=== PATIENT | female | born 1995 | race Hispanic/Latino ===

== ENCOUNTER 2023-01-23 05:15 | Emergency (ER) | payer OTHER ==
[2023-01-23 05:17] VITALS: BP 100/67; TEMP 98.4; O2SAT 98
[2023-01-23 06:02] LABS: BASO % 0.4 % (0.0-1.0); EOS # 0.3 10^3/uL (0.0-0.5); EOS % 5.8 % (0.0-3.0); HEMATOCRIT 36.8 % (36.0-47.0); HEMOGLOBIN 12.9 g/dl (12.0-15.5); LYMPH # 2.8 10^3/uL (1.5-5.0); MEAN CORPUSCULAR HEMOGLOBIN 34.3 pg (27.0-33.0); MEAN CORPUSCULAR HGB CONC 35.1 g/dl (32.0-36.5); MEAN CORPUSCULAR VOLUME 97.9 fl (80.0-96.0); MONO # 0.4 10^3/uL (0.0-0.8); MONO % 8.3 % (2.0-8.0); NEUTROPHILS # 1.6 10^3/uL (1.5-8.5); NEUTROPHILS % 31.3 % (36.0-66.0); PLATELET COUNT, AUTOMATED 250 10^3/uL (150-450); RED BLOOD COUNT 3.76 10^6/uL (4.00-5.40); WHITE BLOOD COUNT 5.2 10^3/uL (4.0-10.0)
[2023-01-23 06:18] LABS: LIPASE 49 U/L (12-53)
[2023-01-23 06:20] LABS: ALBUMIN 3.8 G/DL (3.2-5.2); ALKALINE PHOSPHATASE 58 U/L (46-116); ALT/SGPT 12 U/L (7.0-40); AST/SGOT 9 U/L (<34); BILIRUBIN,DIRECT 0.1 MG/DL (<0.4); BILIRUBIN,TOTAL 0.4 MG/DL (0.3-1.2); BLOOD UREA NITROGEN 8 MG/DL (9-23); CALCIUM LEVEL 9.1 MG/DL (8.5-10.1); CARBON DIOXIDE LEVEL 24 MMOL/L (20-31); CHLORIDE LEVEL 108 MMOL/L (98-107); CREATININE FOR GFR 0.52 MG/DL (0.55-1.30); GLOMERULAR FILTRATION RATE > 60.0 (>60); GLUCOSE, FASTING 94 MG/DL (60-100); POTASSIUM SERUM 3.6 MMOL/L (3.5-5.1); SODIUM LEVEL 140 MMOL/L (136-145); TOTAL PROTEIN 6.3 G/DL (5.7-8.2)
[2023-01-23 06:24] LABS: HCG, SERUM QUALITATIVE NEGATIVE (NEGATIVE)
[2023-01-23 07:02] LABS: APPEARANCE, URINE HAZY (CLEAR); BACTERIA, URINE AUTO NEGATIVE (NEGATIVE); BILIRUBIN, URINE AUTO NEGATIVE (NEGATIVE); BLOOD, URINE BLOOD NEGATIVE (NEGATIVE); COLOR, URINE AMBER (YELLOW); GLUCOSE, URINE (UA) AUTO NEGATIVE (NEGATIVE); KETONE, URINE AUTO TRACE mg/dL (NEGATIVE); LEUKOCYTE ESTERASE, URINE AUTO TRACE (NEGATIVE); MUCUS, URINE LARGE (NEGATIVE); NITRITE, URINE AUTO NEGATIVE (NEGATIVE); PROTEIN, URINE AUTO NEGATIVE (NEGATIVE); RBC, URINE AUTO 0 /HPF (0-3); SPECIFIC GRAVITY URINE AUTO 1.025 (1.002-1.035); SQUAMOUS EPITHELIAL CELL UR AU 6 /HPF (0-6); UROBILINOGEN, URINE AUTO 0.2 mg/dL (0.0-2.0); WBC, URINE AUTO 3 /HPF (0-3)
[2023-01-23] MEDS ORDERED: NS 1,000 ML IV ONE (09:50)
[2023-01-23] MEDS ORDERED: ISOVUE-370 76% 100ML VIAL As Ordered ONE (10:06)
[2023-01-23] MEDS ORDERED: MIRA3350 PO (11:23)
[2023-01-23] MEDS ORDERED: COLA100C5 PO (11:23)
== END 2023-01-23 11:29 | disposition home or self-care (01) ==
LOC: M ED 05:15
DX: K59.00 Constipation, unspecified (principal); R10.12 Left upper quadrant pain; R10.32 Left lower quadrant pain; R91.8 Other nonspecific abnormal finding of lung field; Z88.0 Allergy status to penicillin; D25.9 Leiomyoma of uterus, unspecified
CPT/HCPCS: 36415; 74018; 74177; 76830; 76856; 80048; 80076; 81001; 83690; 84703; 85025; 93976; 99284; Q9967

== ENCOUNTER → 2023-02-03 | Outpatient (CLI) | payer OTHER ==
[~2023-02-03] MED LIST: COLA100C5 PO; MIRA3350 PO
== END ==
LOC: M WUC 14:32
PROVIDERS: ATTEND Registered Nurse
DX: K59.00 Constipation, unspecified (principal)

== ENCOUNTER 2023-03-08 08:13 | Emergency (ER) | payer OTHER ==
[~2023-03-08] VITALS: Ht 152.4 cm; Wt 47.0 kg
[2023-03-08] MEDS ORDERED: IBUPROFEN 400MG TAB PO ONE (11:05)
[2023-03-08] MEDS ORDERED: ACETAMINOPHEN 500 MG TAB PO ONE (11:05)
[2023-03-08 12:43] VITALS: BP 113/56; TEMP 100; O2SAT 100
== END 2023-03-08 12:46 | disposition home or self-care (01) ==
LOC: M ED 08:13
DX: J06.9 Acute upper respiratory infection, unspecified (principal); B34.1 Enterovirus infection, unspecified; B34.8 Other viral infections of unspecified site; Z88.0 Allergy status to penicillin

== ENCOUNTER → 2023-03-27 | Outpatient (CLI) | payer OTHER ==
[2023-03-27 12:38] LABS: BASO % 1.1 % (0.0-1.0); EOS # 0.4 10^3/uL (0.0-0.5); EOS % 9.7 % (0.0-3.0); HEMATOCRIT 37.7 % (36.0-47.0); HEMOGLOBIN 13.3 g/dl (12.0-15.5); LYMPH # 1.8 10^3/uL (1.5-5.0); LYMPH % 49.6 % (24.0-44.0); MEAN CORPUSCULAR HEMOGLOBIN 34.2 pg (27.0-33.0); MEAN CORPUSCULAR HGB CONC 35.3 g/dl (32.0-36.5); MEAN CORPUSCULAR VOLUME 96.9 fl (80.0-96.0); MONO # 0.3 10^3/uL (0.0-0.8); MONO % 9.2 % (2.0-8.0); NEUTROPHILS # 1.1 10^3/uL (1.5-8.5); NEUTROPHILS % 30.4 % (36.0-66.0); PLATELET COUNT, AUTOMATED 248 10^3/uL (150-450); RED BLOOD COUNT 3.89 10^6/uL (4.00-5.40); WHITE BLOOD COUNT 3.7 10^3/uL (4.0-10.0)
[2023-03-27 12:56] LABS: ERYTHROCYTE SEDIMENTATION RATE 2 mm/hr (0-20)
[2023-03-27 12:59] LABS: C REACTIVE PROTEIN QUANTITATIV < 0.40 MG/DL (<1.0)
[2023-03-27 13:01] LABS: ALBUMIN 4.1 G/DL (3.2-5.2); ALKALINE PHOSPHATASE 58 U/L (46-116); ALT/SGPT 16 U/L (7.0-40); AST/SGOT 16 U/L (<34); BILIRUBIN,TOTAL 0.5 MG/DL (0.3-1.2); BLOOD UREA NITROGEN 9 MG/DL (9-23); CALCIUM LEVEL 9.1 MG/DL (8.5-10.1); CARBON DIOXIDE LEVEL 30 MMOL/L (20-31); CHLORIDE LEVEL 106 MMOL/L (98-107); CREATININE FOR GFR 0.54 MG/DL (0.55-1.30); GLOMERULAR FILTRATION RATE > 60.0 (>60); GLUCOSE, FASTING 92 MG/DL (60-100); POTASSIUM SERUM 3.8 MMOL/L (3.5-5.1); SODIUM LEVEL 141 MMOL/L (136-145); TOTAL PROTEIN 6.6 G/DL (5.7-8.2)
[2023-03-27 13:26] LABS: RHEUMATOID FACTOR QUANT < 3.5 IU/ML (<14)
[2023-03-30 02:11] LABS: ANGIOTENSIN 1 CONVERTING ENZYM 36 U/L (14-82); ANTINUCLEAR ANTIBODIES DIRECT Negative (Negative); D001-IgE D pteronyssinus <0.10 kU/L (Class 0); E001-IgE Cat Epith/Dander < 0.10 kU/L (Class 0); E005-IgE Dog Dander < 0.10 kU/L (Class 0); G002-IgE Bermuda Grass < 0.10 kU/L (Class 0); M001-IgE Penicillium chrysogen < 0.10 kU/L (Class 0); M002 IgE Cladosporium herbaru < 0.10 kU/L (Class 0); M003 IgE Aspergillus fumigatu < 0.10 kU/L (Class 0); M006-IgE Alternaria alternata < 0.10 kU/L (Class 0); T001-IgE Maple/Box Elder < 0.10 kU/L (Class 0); T003-IgE Common Silver Birch < 0.10 kU/L (Class 0); T006-IgE Cedar, Mountain < 0.10 kU/L (Class 0); T007-IgE Oak, White < 0.10 kU/L (Class 0); T008-IgE Elm, American < 0.10 kU/L (Class 0); T015-IgE Ash, White < 0.10 kU/L (Class 0); T070-IgE White Mulberry < 0.10 kU/L (Class 0); W001-IgE Ragweed, Short < 0.10 kU/L (Class 0); W018-IgE Sheep Sorrel < 0.10 kU/L (Class 0)
== END ==
LOC: M WUC 09:17
PROVIDERS: ATTEND Physician Assistant
DX: J30.89 Other allergic rhinitis (principal); R91.1 Solitary pulmonary nodule; M13.849 Other specified arthritis, unspecified hand

== ENCOUNTER → 2023-07-31 | Outpatient (CLI) | payer OTHER ==
[2023-07-31 13:21] LABS: BASO % 0.6 % (0.0-1.0); EOS # 0.4 10^3/uL (0.0-0.5); EOS % 10.2 % (0.0-3.0); HEMATOCRIT 37.7 % (36.0-47.0); HEMOGLOBIN 13.1 g/dl (12.0-15.5); LYMPH # 1.7 10^3/uL (1.5-5.0); LYMPH % 48.4 % (24.0-44.0); MEAN CORPUSCULAR HGB CONC 34.7 g/dl (32.0-36.5); MEAN CORPUSCULAR VOLUME 100.8 fl (80.0-96.0); MONO # 0.3 10^3/uL (0.0-0.8); NEUTROPHILS # 1.1 10^3/uL (1.5-8.5); NEUTROPHILS % 31.5 % (36.0-66.0); PLATELET COUNT, AUTOMATED 225 10^3/uL (150-450); RED BLOOD COUNT 3.74 10^6/uL (4.00-5.40); WHITE BLOOD COUNT 3.4 10^3/uL (4.0-10.0)
== END ==
LOC: M WUC 10:34
PROVIDERS: ATTEND Physician Assistant
DX: D72.819 Decreased white blood cell count, unspecified (principal)

== ENCOUNTER → 2023-09-27 | Outpatient (CLI) | payer OTHER ==
[~2023-09-27] MED LIST changes: +CETI-24
== END ==
LOC: M RAD 15:59
PROVIDERS: ATTEND Physician Assistant
DX: J32.8 Other chronic sinusitis (principal); J34.2 Deviated nasal septum

== ENCOUNTER 2023-10-11 05:31 | Emergency (ER) | payer OTHER ==
[~2023-10-11] VITALS: Ht 152.4 cm; Wt 43.8 kg
[2023-10-11 06:27] LABS: RSV AMPLIFICATION NEGATIVE (NEGATIVE)
[2023-10-11 06:43] LABS: URINE PREG TEST NEGATIVE (NEGATIVE)
[2023-10-11 07:38] VITALS: BP 106/59; TEMP 97.1; O2SAT 100
[2023-10-11] MEDS ORDERED: DOXY-443 PO (07:39)
[2023-10-11] MEDS ORDERED: OXYM15SP2 (07:39)
== END 2023-10-11 07:44 | disposition home or self-care (01) ==
LOC: M ED 05:31
DX: J01.90 Acute sinusitis, unspecified (principal); Z79.899 Other long term (current) drug therapy; Z88.0 Allergy status to penicillin

== ENCOUNTER 2023-10-12 00:14 | Inpatient (IN) | payer OTHER ==
[~2023-10-12] VITALS: Ht 152.4 cm; Wt 43.2 kg
[~2023-10-12 00:14] MED LIST changes: +DOXY-443 PO; +OXYM15SP2
[2023-10-12 01:04] LABS: HEMATOCRIT 39.4 % (36.0-47.0); MEAN CORPUSCULAR HGB CONC 35.5 g/dl (32.0-36.5); MEAN CORPUSCULAR VOLUME 98.5 fl (80.0-96.0); PLATELET COUNT, AUTOMATED 223 10^3/uL (150-450); WHITE BLOOD COUNT 6.9 10^3/uL (4.0-10.0)
[2023-10-12 01:18] LABS: AMPHETAMINES LEVEL URINE NEGATIVE (NEGATIVE); BARBITURATES URINE NEGATIVE (NEGATIVE); BENZODIAZEPINES URINE NEGATIVE (NEGATIVE)
[2023-10-12 01:19] LABS: CANNABINOIDS URINE NEGATIVE (NEGATIVE); COCAINE METABOLITE URINE NEGATIVE (NEGATIVE); METHADONE URINE NEGATIVE (NEGATIVE); OPIATES URINE NEGATIVE (NEGATIVE); PHENCYCLIDINE URINE NEGATIVE (NEGATIVE)
[2023-10-12 01:21] LABS: ETHYL ALCOHOL (ETHANOL) < 0.003 % (0.000-0.010)
[2023-10-12 01:22] LABS: ALBUMIN 4.3 G/DL (3.2-5.2); ALKALINE PHOSPHATASE 59 U/L (46-116); ALT/SGPT 10 U/L (7.0-40); AST/SGOT 19 U/L (<34); BILIRUBIN,DIRECT 0.1 MG/DL (<0.4); BILIRUBIN,TOTAL 0.4 MG/DL (0.3-1.2); BLOOD UREA NITROGEN 11 MG/DL (9-23); CALCIUM LEVEL 9.6 MG/DL (8.5-10.1); CARBON DIOXIDE LEVEL 28 MMOL/L (20-31); CHLORIDE LEVEL 103 MMOL/L (98-107); CREATININE FOR GFR 0.48 MG/DL (0.55-1.30); GLOMERULAR FILTRATION RATE > 60.0 (>60); GLUCOSE, FASTING 105 MG/DL (60-100); POTASSIUM SERUM 3.4 MMOL/L (3.5-5.1); SALICYLATE LEVEL < 3.0 MG/DL (<30); SODIUM LEVEL 139 MMOL/L (136-145); TOTAL PROTEIN 6.9 G/DL (5.7-8.2)
[2023-10-12 01:24] LABS: THYROID STIMULATING HORMONE 2.907 uIU/ML (0.55-4.78)
[2023-10-12 01:33] LABS: HCG, SERUM QUALITATIVE NEGATIVE (NEGATIVE)
[2023-10-12] MEDS ORDERED: MAALOX 30 ML SUSP *UDC PO PRN (04:35)
[2023-10-12] MEDS ORDERED: diphenhydrAMINE 25MG CAP PO PRN (04:35)
[2023-10-12] MEDS ORDERED: IBUPROFEN 400MG TAB PO PRN (04:35)
[2023-10-12] MEDS ORDERED: traZODone 50 MG TAB PO PRN (04:35)
[2023-10-12] MEDS ORDERED: ACETAMINOPHEN TAB 650MG DOSE (2X325MG) PO PRN (04:35)
[2023-10-12] MEDS ORDERED: MOM 30ML SUSPENSION UDC PO PRN (04:35)
[2023-10-12 06:05] VITALS: BP 105/61; TEMP 97.5; O2SAT 100
== END 2023-10-12 11:02 | disposition home or self-care (01) | DRG 880 ==
LOC: M ED 00:14 → M ED INP 04:34 → M PSY 05:10
PROVIDERS: ADMIT Psychiatry & Neurology Psychiatry; ATTEND Student in an Organized Health Care Education/Training Program
DX: F43.0 Acute stress reaction (principal); R45.851 Suicidal ideations; J45.909 Unspecified asthma, uncomplicated; Z79.899 Other long term (current) drug therapy

== ENCOUNTER → 2023-12-08 | Outpatient (CLI) | payer OTHER ==
[~2023-12-08] MED LIST changes: +DOXY-323 PO; -DOXY-443 PO
== END ==
LOC: M RAD 09:28
PROVIDERS: ATTEND Internal Medicine Hematology & Oncology
DX: D70.9 Neutropenia, unspecified (principal)

== ENCOUNTER → 2024-03-01 | Outpatient (CLI) | payer OTHER | LOC: M RAD 09:14 | PROVIDERS: ATTEND Otolaryngology | DX: J32.8 Other chronic sinusitis (principal); J32.4 Chronic pansinusitis ==

== ENCOUNTER 2024-03-04 09:14 | Day surgery (SDC) | payer OTHER ==
[~2024-03-04] VITALS: Ht 152.4 cm; Wt 42.7 kg
[~2024-03-04 09:14] MED LIST changes: +LIDOCAINE 2% 100MG/5ML SDV (FOR ANES.) As Ordered ONE; +MIDAZOLAM INJ 2MG/2ML VIAL As Ordered ONE; +ONDANSETRON 4MG 2ML VIAL As Ordered ONE; +ROCURONIUM BROMIDE 50MG/5ML VIAL As Ordered ONE; +fentaNYL 100 MCG/2 ML INJECTION As Ordered ONE; +propofoL 200 MG/20 ML VIAL As Ordered ONE
[2024-03-04] MEDS ORDERED: LR 1,000 ML IV SCH ×3 (09:35→15:00)
[2024-03-04] MEDS ORDERED: dexmedeTOMIDine (4MCG/ML)200MCG/50ML BTL (PRECEDEX) As Ordered ONE (10:11)
[2024-03-04] MEDS ORDERED: ACETAMINOPHEN 1000MG 100ML IV BAG As Ordered ONE (10:49)
[2024-03-04] MEDS ORDERED: SUGAMMADEX SODIUM 500 MG/5 ML VIAL (BRIDION) As Ordered ONE (12:06)
[2024-03-04] MEDS: COCAINE 4% 4ML NASAL SOLUTION BTL As Ordered ONE (13:10)
[2024-03-04] MEDS: LIDOCAINE W/EPINEPHRINE 1% 20ML VIAL As Ordered ONE (13:10)
[2024-03-04] MEDS: OXYMETAZOLINE 0.05% NASAL SPRAY (AFRIN) As Ordered ONE (13:10)
[2024-03-04] MEDS ORDERED: fentaNYL 100 MCG/2 ML INJECTION IV PRN (13:25)
[2024-03-04] MEDS: ONDANSETRON 4MG 2ML VIAL IV PRN (13:50)
[2024-03-04] MEDS: oxyCODONE 5MG TAB PO PRN (14:05)
[2024-03-04] MEDS: HYDROMORPHONE HCL 0.5 MG/ 0.5 ML SYRINGE IV PRN (14:05)
[2024-03-04] MEDS ORDERED: ANEXSIA, NORCO 7.5MG/325MG TABLET(HYDROCODONE/APAP) PO PRN (15:00)
[2024-03-04 17:13] VITALS: BP 118/75; TEMP 98.1; O2SAT 99
== END 2024-03-04 17:22 | disposition home or self-care (01) ==
LOC: M SDC 09:14
PROVIDERS: ATTEND Otolaryngology
DX: J32.4 Chronic pansinusitis (principal); J34.2 Deviated nasal septum; J34.3 Hypertrophy of nasal turbinates; Z88.0 Allergy status to penicillin; Z79.899 Other long term (current) drug therapy
CPT/HCPCS: 30140; 30520; 31259; 31267; 31276; 61782; 81025; 88305; A6024; C9143; J0131; J1100; J1170; J2250; J2405; J3010

== ENCOUNTER 2024-03-04 22:16 | Emergency (ER) | payer OTHER ==
[~2024-03-04] VITALS: Ht 152.4 cm; Wt 44.4 kg
[~2024-03-04 22:16] MED LIST changes: -LIDOCAINE 2% 100MG/5ML SDV (FOR ANES.) As Ordered ONE; -MIDAZOLAM INJ 2MG/2ML VIAL As Ordered ONE; -ONDANSETRON 4MG 2ML VIAL As Ordered ONE; -ROCURONIUM BROMIDE 50MG/5ML VIAL As Ordered ONE; -fentaNYL 100 MCG/2 ML INJECTION As Ordered ONE; -propofoL 200 MG/20 ML VIAL As Ordered ONE
[2024-03-04 22:17] VITALS: BP 125/86; TEMP 98.5; O2SAT 99
== END 2024-03-05 01:07 | disposition left against medical advice (07) ==
LOC: M ED 22:16
DX: Z53.21 Procedure and treatment not carried out due to patient leaving prior to being seen by health care provider (principal)

== ENCOUNTER → 2024-08-01 | Outpatient (CLI) | payer OTHER ==
[~2024-08-01] MED LIST changes: -DOXY-323 PO; +DOXY-441 PO
[2024-08-01 19:16] LABS: HEMOGLOBIN 11.9 g/dl (12.0-15.5); MEAN CORPUSCULAR HEMOGLOBIN 33.8 pg (27.0-33.0); MEAN CORPUSCULAR VOLUME 99.4 fl (80.0-96.0); PLATELET COUNT, AUTOMATED 243 10^3/uL (150-450); RED BLOOD COUNT 3.52 10^6/uL (4.00-5.40); WHITE BLOOD COUNT 4.1 10^3/uL (4.0-10.0)
[2024-08-01 19:43] LABS: THYROID STIMULATING HORMONE 0.887 uIU/ML (0.55-4.78)
[2024-08-01 19:44] LABS: FREE T4 1.02 NG/DL (0.89-1.76)
[2024-08-01 19:45] LABS: TOTAL IRON BINDING CAPACITY 353 UG/DL (250-425)
[2024-08-01 19:46] LABS: ALBUMIN 4.1 G/DL (3.2-5.2); ALKALINE PHOSPHATASE 56 U/L (35-104); ALT/SGPT 12 U/L (7.0-40); AST/SGOT 16 U/L (<34); BILIRUBIN,TOTAL 0.5 MG/DL (0.3-1.2); BLOOD UREA NITROGEN 11 MG/DL (9-23); CALCIUM LEVEL 9.2 MG/DL (8.5-10.1); CARBON DIOXIDE LEVEL 26 MMOL/L (20-31); CHLORIDE LEVEL 107 MMOL/L (98-107); CHOLESTEROL LEVEL 241 MG/DL (<200); CHOLESTEROL RISK RATIO 2.05 (<5); CREATININE FOR GFR 0.59 MG/DL (0.55-1.30); GLOMERULAR FILTRATION RATE > 60.0 (>60); GLUCOSE, FASTING 84 MG/DL (60-100); IRON (FE) 121 UG/DL (50-170); LDL CHOLESTEROL 112.8 MG/DL (<100); PERCENT SATURATION 34.3 % (13.2-45.0); POTASSIUM SERUM 3.5 MMOL/L (3.5-5.1); SODIUM LEVEL 141 MMOL/L (136-145); TOTAL PROTEIN 6.9 G/DL (5.7-8.2); TRIGLYCERIDES LEVEL 56 MG/DL (<150); VITAMIN B12 LEVEL 943 PG/ML (211-911)
[2024-08-01 19:47] LABS: FOLATE 9.71 NG/ML (>5.4)
[2024-08-01 19:48] LABS: TOTAL 25(OH) VITAMIN D 18.3 NG/ML (20.0-100.0)
[2024-08-01 19:50] LABS: FREE T3 2.7 PG/ML (2.3-4.2)
== END ==
LOC: M WUC 13:17
PROVIDERS: ATTEND Registered Nurse
DX: Z13.21 Encounter for screening for nutritional disorder (principal)